=== PATIENT | male | born 1970 | race Caucasian/White ===

== ENCOUNTER 2018-09-12 13:10 | Emergency (ER) | payer OTHER ==
[~2018-09-12] VITALS: Ht 160 cm; Wt 59.0 kg
[2018-09-12] MEDS ORDERED: KEFLEX500 M1 PO (14:36)
[2018-09-12] MEDS ORDERED: NORCO 5-325 TA1 EACH PO (14:36)
[2018-09-12 15:03] VITALS: BP 140/86
== END 2018-09-12 15:00 | disposition home or self-care (01) ==
LOC: ER 13:10
DX: S61.317A Laceration without foreign body of left little finger with damage to nail, initial encounter (principal); S62.607A Fracture of unspecified phalanx of left little finger, initial encounter for closed fracture; Z88.0 Allergy status to penicillin; W45.8XXA Other foreign body or object entering through skin, initial encounter; Y93.89 Activity, other specified; Y92.89 Other specified places as the place of occurrence of the external cause; Y99.8 Other external cause status